=== PATIENT | male | born 1995 | race Caucasian/White ===

== ENCOUNTER 2022-01-11 04:15 | Day surgery (SDC) | payer SELFPAY ==
[2022-01-11] MEDS ORDERED: Ondansetron 4 MG/2 ML SDV IVPUSH ONE (04:34)
[2022-01-11] MEDS ORDERED: Morphine 4 MG/ML VIAL IVPUSH ONE (04:34)
[2022-01-11] MEDS ORDERED: Dextrose 5%-Lactated Ringers 1,000 ML IV SCH (04:45)
[2022-01-11 04:56] LABS: BLOOD UREA NITROGEN,BUN 17 mg/dL (7.0-18.0); CARBON DIOXIDE,CO2 27.4 mmol/L (21.0-32.0); CHLORIDE,CL 104 mmol/L (98-107); GLUCOSE RANDOM 115 mg/dL (74-106); LIPASE 78 U/L (73-393); SODIUM,NA 140 mmol/L (136-148)
[2022-01-11] MEDS ORDERED: Iopamidol 755 MG/ML 500 ML Multipack Bottle IVPUSH ONE (05:19)
[2022-01-11] MEDS ORDERED: cefTRIAXone 1 GM in Sodium Chloride 0.9% 50 ML IV ONE (05:59)
[2022-01-11] MEDS ORDERED: metroNIDAZOLE/Normal Saline 500 MG in Premix Bag 1 BAG IV ONE (05:59)
[2022-01-11] MEDS ORDERED: Lactated Ringers 1,000 ML IV STA (06:07)
[2022-01-11] MEDS ORDERED: Bupivacaine 0.25%/EPINEPHrine 1:200,000 10 ML SDV ONE (07:14)
[2022-01-11] MEDS ORDERED: Octyl 2-Cyanoacrylate 1 Tube ONE (07:14)
[2022-01-11] MEDS ORDERED: fentaNYL 250 MCG/5 ML SDV ONE ×2 (07:21→08:01)
[2022-01-11] MEDS ORDERED: Propofol 200 MG/20 ML SDV ONE (07:21)
[2022-01-11] MEDS ORDERED: Famotidine 20 MG/2 ML SDV ONE (08:21)
[2022-01-11] MEDS ORDERED: Glycopyrrolate 0.2 MG/ML SDV ONE (08:48)
[2022-01-11] MEDS ORDERED: Sugammadex Sodium 200 MG/2 ML VIAL ONE (08:48)
[2022-01-11] MEDS ORDERED: Succinylcholine/Sod PF 100 MG/5 ML SYRINGE IV ONE (08:48)
[2022-01-11] MEDS ORDERED: Ondansetron 4 MG/2 ML SDV ONE (08:48)
[2022-01-11] MEDS ORDERED: ePHEDrine 50 MG/ML SDV ONE (08:48)
[2022-01-11] MEDS ORDERED: Rocuronium Bromide 50 MG/5 ML Syringe ONE (08:48)
[2022-01-11] MEDS ORDERED: Dexamethasone 4 MG/ML 5 ML MDV ONE (08:48)
[2022-01-11] MEDS ORDERED: HYDROmorphone 2 MG/ML Syringe ONE (08:57)
[2022-01-11] MEDS ORDERED: Acetaminophen/oxyCODONE 325-5 MG Tab PO PRN (09:08)
[2022-01-11] MEDS ORDERED: fentaNYL 100 MCG/2 ML SDV ONE (09:08)
[2022-01-11] MEDS ORDERED: Morphine 4 MG/ML VIAL IVPUSH PRN (09:08)
[2022-01-11] MEDS ORDERED: Ondansetron 4 MG/2 ML SDV IVPUSH PRN ×2 (09:09→09:16)
[2022-01-11] MEDS ORDERED: fentaNYL 50 MCG/ML SDV IVPUSH ONE (09:14)
[2022-01-11] MEDS ORDERED: Lactated Ringers 1,000 ML IV SCH (09:15)
[2022-01-11] MEDS ORDERED: Albuterol 0.083% 2.5 MG/3 ML Neb Soln NEB PRN (09:16)
[2022-01-11] MEDS ORDERED: Morphine 2 MG/ML SYRINGE IVPUSH PRN (09:16)
[2022-01-11] MEDS ORDERED: Naloxone 0.4 MG/ML SDV IVPUSH PRN (09:16)
[2022-01-11] MEDS ORDERED: fentaNYL 100 MCG/2 ML SDV IVPUSH PRN (09:16)
[2022-01-11] MEDS ORDERED: Metoclopramide 10 MG/2 ML SDV IVPUSH PRN (09:16)
[2022-01-11] MEDS ORDERED: HYDROmorphone 1 MG/ML Syringe IVPUSH PRN (09:16)
== END 2022-01-11 16:45 | disposition home or self-care (01) ==
LOC: MW.ED 04:15 → MW.SDS 06:40 → MW.MS 09:55 → MW.SDS 16:45
PROVIDERS: ATTEND Surgery
DX: K35.80 Unspecified acute appendicitis (principal); F17.210 Nicotine dependence, cigarettes, uncomplicated; Z01.812 Encounter for preprocedural laboratory examination; Z20.822 Contact with and (suspected) exposure to COVID-19
CPT/HCPCS: 36415; 44970; 74177; 80053; 81003; 83690; 85025; 87635; 96365; 96375; 99285; A9270; J0131; J0330; J0696; J1100; J1170; J2270; J2405; J2704; J3010; J3490; J7030; J7120; J7121; Q9967; 00840; 99283; U0002